=== PATIENT | female | born 1995 | race Caucasian/White ===

== ENCOUNTER 2017-10-23 19:09 | Emergency (ER) | payer BC ==
[~2017-10-23] VITALS: Ht 152.4 cm; Wt 66.5 kg
[2017-10-23 19:13] VITALS: TEMP 37.1; Ht 152.4 cm; Wt 66.5 kg
[2017-10-23] MEDS ORDERED: ACETAMINOPHEN 500 MG TAB PO STA (19:50)
[2017-10-23] MEDS ORDERED: SODIUM CHLORIDE 0.9% 1000ML 1,000 ML IV STA (19:50)
[2017-10-23] MEDS ORDERED: KETOROLAC TROMETHAMINE 30 MG/ML VIAL IV STA (19:50)
--- NOTE | 2017-10-23 20:02 | EMERGENCY ROOM VISIT NOTE ---
History Report prepared by Bri: Mckenzie Dang Under the Supervision of: Dr. Shailesh Rm M.D. First contact with patient: 19:39 Chief Complaint: FLU LIKE SX Stated Complaint: FLU, DEHYDRATED, SHAKING, VOMITING, PASS OUT History of Present Illness The patient is a 22 year old white female with a past medical history of vasovagal syncope who presents to the ED with a cc of worsening flu-like symptoms beginning 4 days ago. The patient states that she has had a headache, sore throat, congestion, and generalized body aches. Today she started feeling shaky, chilled, and diaphoretic. She became nauseated and had two episodes of vomiting. The patient had a syncopal episode earlier today. She states that it was witnessed by her roommate who denied any seizure-like activity. The patient denies any trauma or injury from the episode. She did not bite her tongue. She denies any incontinence. She has been taking ibuprofen for her symptoms. The patient takes an OCP, her LNMP was 2 weeks ago. She did not have a flu shot this year. Source of History: patient Onset: 4 days ago Position: other (global) Quality: other (flu-like) Timing: worsening Modifying Factors (Relieving): ibuprofen Associated Symptoms: + LOC, + headache, + diaphoresis, + sorethroat, No urinary symptoms Review of Systems See HPI for pertinent positives and negatives. A total of ten systems were reviewed and were otherwise negative. Past Medical & Surgical Medical Problems: (1) No significant active problems Family History No pertinent history stated. Social History Smoking Status: Never Smoker Smokeless Tobacco Use: No Alcohol Use: occasionally Marital Status: single Housing Status: lives with roommate Occupation Status: [employer] Current/Historical Medications Scheduled Control Pills ( Control Pills), 1 TAB PO DAILY Allergies Coded Allergies: [place] (Unverified Allergy, Unknown, , 10/23/17) Uncoded Nonscreenable Allergen (Unverified Allergy, Unknown, MOST FRUITS, 10/23/17) Physical Exam Vital Signs Date Time Temp Pulse Resp B/P (MAP) Pulse Ox O2 Delivery O2 Flow Rate FiO2 10/23/17 21:13 78 20 123/95 98 10/23/17 20:49 94 20 130/89 100 Room Air 10/23/17 19:13 37.1 138 20 134/89 99 Room Air Physical Exam GENERAL: Awake, alert, well-appearing, NAD HENT: Normocephalic, atraumatic. EYES: Normal conjunctiva. Sclera non-icteric. NECK: Supple. No nuchal rigidity. FROM. No signs of meningismus. RESPIRATORY: CTAB, no rhonchi, wheezing, crackles CARDIAC: Tachycardic rate and regular rhythm, no MRG ABDOMEN: Soft, NTND, BS+ MSK: No chest wall TTP, no LE edema NEURO: GCS 15, CN 2-12 intact, moves all 4s on command SKIN: No rash or jaundice noted. Medical Decision & Procedures ER Provider Diagnostic Interpretation: Radiology results as stated below per my review and radiologist interpretation: CHEST ONE VIEW PORTABLE CLINICAL HISTORY: Cough. Syncope. COMPARISON STUDY: No previous studies for comparison. FINDINGS: Lung volumes are normal. Lungs are clear. No pneumothorax or pleural effusion is noted. Pulmonary vascularity is normal. Cardiomediastinal silhouette is normal. IMPRESSION: No acute cardiopulmonary findings. Electronically signed by: Jae Mendiola M.D. 10/23/2017 8:36 PM Dictated Date/Time: 10/23/2017 8:35 PM Laboratory Results Test 10/23/17 20:00 Influenza Type A Antigen Neg for Influ A (NEG) Influenza Type B Antigen Neg for Influ B (NEG) Laboratory results reviewed by me. Medications Administered Medications (Trade) Dose Ordered Sig/Blossom Route Start Time Stop Time Status Last Admin Dose Admin Ketorolac Tromethamine (Toradol Inj) 30 mg NOW STAT IV 10/23/17 19:50 10/23/17 19:52 DC 10/23/17 20:11 30 MG Acetaminophen (Tylenol Tab) 1,000 mg NOW STAT PO 10/23/17 19:50 10/23/17 19:52 DC 10/23/17 20:12 1,000 MG Sodium Chloride 1,000 ml @ 999 mls/hr Q1H1M STAT IV 10/23/17 19:50 10/23/17 20:50 DC 10/23/17 20:11 999 MLS/HR ECG Indication: syncope Rate (beats per minute): 108 Rhythm: sinus tachycardia Findings: T-wave inversion (lead 3), no ectopy, other (no other STS changes) Comparison ECG Date: no prior available Change: ECG as interpreted by myself. ED Course 193: The patient was evaluated in room C8. A complete history and physical exam was performed. 2050: I reassessed the patient at this time. She is feeling better and resting comfortably. I discussed the results and treatment plan with the patient. I answered all pertaining questions that she had. She expressed understanding and verbalized agreement. The patient will be discharged home. Medical Decision Differential diagnosis: Etiologies such as viral syndrome, otitis, pharyngitis, pneumonia, influenza, meningitis, urinary tract infection, sepsis, bacteremia, as well as others were entertained. Patient was seen and evaluated the bedside. Patient had been complaining of a head cold over since yesterday. Patient states she had taken some Motrin with some mild improvement. Patient denies any recent travel or antibiotics. Patient states that her roommate had had a similar head cold. She has had mild nonproductive cough. Patient did not get a flu shot. I did discuss the patient 's care with the patient. We did discuss the utility of getting blood work. We decided not to do his patient is nontoxic in appearance. Patient did have an EKG, chest x-ray, and struck. The patient was treated with regard to her symptoms. Patient's chest x-ray was clear and the patient's flu swab was negative. Patient was feeling improved upon reassessment. Patient was deemed suitable for outpatient follow-up and treatment at this time. Patient was given outpatient follow-up instructions as well as yvxq-[id number] type treatments. Patient was agreeable with this plan of care. Patient was given strict follow-up, discharge, and return precautions. All questions were answered. Patient was deemed suitable for outpatient follow-up at this time. Patient agreed with the plan of care and was safely discharged home. The chart was completed utilizing [employer] Speech voice recognition software. Grammatical errors, random word insertions, pronoun errors, and incomplete sentences are an occasional consequence of this system due to software limitations, ambient noise, and hardware issues. Any formal questions or concerns about the content, text, or information contained within the body of this dictation should be directly addressed to the physician for clarification. Medication Reconcilliation Current Medication List: was personally reviewed by me Blood Pressure Screening Patient's blood pressure: Normal blood pressure Impression Primary Impression: Influenza-like symptoms Additional Impressions: Upper respiratory infection Acute bronchitis Scribe Attestation The scribe's documentation has been prepared under my direction and personally reviewed by me in its entirety. I confirm that the note above accurately reflects all work, treatment, procedures, and medical decision making performed by me. Departure Information Dispostion Home / Self-Care Referrals No Doctor, Assigned (PCP) Forms HOME CARE DOCUMENTATION FORM, IMPORTANT VISIT INFORMATION Patient Instructions Bronchitis Acute, ED Upper Resp Infec No Rita Bhandari [facility] Additional Instructions Please return to the emergency department if you have worsening or recurrent symptoms not amenable to at-home treatment. Please call for a follow-up appointment with her primary care physician. Please take your medications as prescribed. If you have other concerns and/or complaints please feel free to also call your primary care physician's office or return the ED for further evaluation, management, and treatment. Please hydrate liberally with clear liquids. You may slowly advanced your diet as tolerated. You may take [id number] type medications for any symptoms he may have. Please avoid alcohol, tobacco, and caffeine. You may take 600 mg Ibuprofen every 6 hours as needed for pain with food for no more than 2 consecutive days. You may take tylenol 1000 mg every 6 hours as needed for pain. You may take motrin and tylenol separately or at the same time. Take your medications as prescribed. You have been examined and treated today on an emergency basis only. This is not a substitute for, or an effort to provide, complete comprehensive medical care. It is impossible to recognize and treat all injuries or illnesses in a single emergency department visit. It is therefore important that you follow up closely with [facility], your PCP, and/or your specialist(s). Call as soon as possible for an appointment. Thank you for your time and consideration. I look forward to speaking with you again soon. Please don't hesitate to call us if you have any questions. Problem Qualifiers Additional Impressions: Upper respiratory infection URI type: acute nasopharyngitis (common cold) Qualified Codes: J00 - Acute nasopharyngitis [common cold] Acute bronchitis Bronchitis organism: unspecified organism Qualified Codes: J20.9 - Acute bronchitis, unspecified
[2017-10-23] MEDS ORDERED: BCPILLS PO (20:19)
--- NOTE | 2017-10-23 20:37 | DIAGNOSTIC IMAGING REPORT ---
CHEST ONE VIEW PORTABLE CLINICAL HISTORY: Cough. Syncope. COMPARISON STUDY: No previous studies for comparison. FINDINGS: Lung volumes are normal. Lungs are clear. No pneumothorax or pleural effusion is noted. Pulmonary vascularity is normal. Cardiomediastinal silhouette is normal. IMPRESSION: No acute cardiopulmonary findings. Electronically signed by: Jae Mendiola M.D. 10/23/2017 8:36 PM Dictated Date/Time: 10/23/2017 8:35 PM
[2017-10-23 20:44] LABS: INFLUENZA B ANTIGEN Neg for Influ B (NEG)
[2017-10-23 21:13] VITALS: BP 123/95; PULSE 78; O2SAT 98
== END 2017-10-23 21:15 | disposition home or self-care (01) ==
LOC: C.EDB 19:12 → C.EDC 21:15
DX: J00 Acute nasopharyngitis [common cold] (principal); J20.9 Acute bronchitis, unspecified; R51 Headache; J02.9 Acute pharyngitis, unspecified; R11.2 Nausea with vomiting, unspecified; Z79.3 Long term (current) use of hormonal contraceptives